=== PATIENT | female | born 1970 | race Caucasian/White ===

== ENCOUNTER → 2020-05-14 | Outpatient (CLI) | payer BC ==
[~2020-05-14] VITALS: Ht 165.1 cm; Wt 77.1 kg
[~2020-05-14] MED LIST: ALEVE220 MG PO; METFORMIN HCL1000 M2 PO; METFORMIN HCL500 M3 PO; ROSUVASTATIN CA20 MG PO
--- NOTE | ~2020-05-14 | HPC ---
[facility] [place] [place] [address] PAIN MANAGEMENT CONSULTATION Name: MARGIE MORA Room #: REG STEVEN CurielRobin#: [id number] Admission: 05/14/20 Attend Phys: Gavino Davalos DO Discharge: Date of : 74 Report #: [id number] THIS REPORT FOR: cc: Henry Neely II, MD, II,Gavino Burks MD, DO ~ CC: Gavino Neely MD DATE OF SERVICE: 05/14/2020 REFERRING PHYSICIAN: Henry Neely MD CHIEF COMPLAINT: Low back pain, right lower extremity pain with paresthesias. HISTORY OF PRESENT ILLNESS: As you know, the patient is a very pleasant 50-year-old female who reports acute onset of low back pain, right lower extremity pain with paresthesias began 04/08/2019. The patient states that symptoms began immediately after lifting her 85-90 pound child. The patient indicates that prior to this, she had no history of low back symptoms. She states after lifting her child, she began to experience pain in the low back. She trialled conservative treatment including rest, relaxation and [id number] medications. This did not improve her symptoms. She then began experiencing symptoms radiating down the leg. She sought evaluation through her primary care physician, Dr. Henry Neely, who trialled conservative treatment including physical therapy. Unfortunately, physical therapy has been unsuccessful alleviating symptoms. She does come to us today with an imaging study from 04/18/2019 which shows changes at the L4-L5 level consistent with her distribution of pain. She was referred to our clinic to discuss interventional treatment options. The patient reports today pain is steady. She describes the pain as shooting, aching, sharp and tender. Pain today is rated anywhere from 7-8/10, daily average at 7-8/10, worst pain has been is 9/10. The patient states that sitting for any length of time, bending for any length of time and standing for any length of time exacerbates symptoms. Pain is improved with lying on her stomach and repositioning. She has been referred to our service to discuss treatment options for lumbar radiculopathy secondary to the findings at the L4-L5 level. PAST MEDICAL HISTORY: 1. Diabetes mellitus type 2. 2. Asthma. 3. Dyslipidemia. PAST SURGICAL HISTORY: [address] [address] PAIN MANAGEMENT CONSULTATION Name: MARGIE MORA Room #: REG STEVEN Adams#: [id number] Admission: 05/14/20 Attend Phys: Gavino Davalos DO Discharge: Date of : 74 Report #: [id number] 1. Tonsillectomy, adenoidectomy, 04/2002. 2. section,10/2004. 3. section, 03/2006. SOCIAL HISTORY: The patient denies tobacco, alcohol, IV or illicit drug use. She is a youth director. She is working, not receiving workmen's compensation nor is trying to obtain disability benefits. She is not in litigation in regards to pain. She is unaccompanied at today's visit. REVIEW OF SYSTEMS: Positive for wearing corrective eyewear, earaches with drainage, asthma and wheezing, painful menses, irregular menses, diabetes mellitus type 2, noninsulin dependent, low back pain, right lower extremity pain with paresthesias. All other review of systems negative per 12-point review of systems other than those listed in history of present illness. Pain impact score 43 of 70 indicating moderate to severe interference of daily activities secondary to pain. ALLERGIES: No reported drug allergies. CURRENT MEDICATIONS: Naproxen 220 mg twice a day, lovastatin 20 mg once a day, metformin 1000 mg once a day. IMAGING: MRI lumbar spine obtained on 04/18/2019 shows L1-L2, L2-L3 unremarkable. L3-L4 shows bilateral facet hypertrophy, no significant central canal nor neural foraminal stenosis. L4-L5 right paracentral posterior disk herniation severely effacing the right lateral recess demonstrating mass effect upon the traversing right L5 nerve root. Disk fragment measures 13 x 6 mm in combination with severe bilateral facet hypertrophy and ligamentum flavum hypertrophy resulting in severe central canal stenosis with canal measuring only 5 mm. No significant neural foraminal narrowing. L5-S1 bilateral facet hypertrophy, small, broad-based posterior disk bulge, no significant central canal or neural foraminal stenosis. PHYSICAL EXAMINATION: VITAL SIGNS: Blood pressure 151/67, pulse 94, respiratory rate 16 and unlabored. The patient is 100% on room air. Height 5 feet 5 inches tall, weight 170 pounds, BMI calculated 28.3. GENERAL: Well-developed, well-nourished, well-hydrated 50-year-old female appearing stated age, pain is rated around 7-8/10. HEENT: Normocephalic, atraumatic. Pupils equal, round and reactive to light. Extraocular muscles are intact. NEUROLOGIC: Speech is fluent. The patient deemed an excellent historian. LUNGS: Clear, no wheeze, rhonchi or rales. CARDIOVASCULAR: Regular. No appreciable gallop, no rub. ABDOMEN: Soft, mildly obese, normoactive bowel sounds. [address] [address] PAIN MANAGEMENT CONSULTATION Name: MARGIE MORA Room #: REG STEVEN Adams#: [id number] Admission: 05/14/20 Attend Phys: Gavino Davalos DO Discharge: Date of : 74 Report #: [id number] EXTREMITIES: Show no clubbing, no cyanosis. No appreciable edema. MUSCULOSKELETAL: Lower extremity strength is symmetrical 5/5. Slight giveaway strength noted with hip flexion, knee extension on the right when compared to left. Seated straight leg raising positive on the right. Supine straight leg raising positive on the right at approximately 50-60 degree angle. Ankle clonus negative. Babinski is negative. The patient is able to toe walk and heel walk with assistance. Deep tendon reflexes appear symmetrical at patella and Achilles. Clonus in the ankle is negative. Babinski's is negative. Lumbar provocation testing is met with slight increase in pain with lateral flexion and rotation to the right. ASSESSMENT: 1. Symptomatic lumbar radiculopathy. 2. Severe central canal stenosis of the lumbar spine. 3. Displacement of lumbar intervertebral disk with radiculopathy. 4. Lumbosacral spondylosis with radiculopathy. 5. Chronic intractable pain. PLAN: 1. Based on today's physical exam and history the patient has provided, the description the patient uses in regards to pain as well as location of symptoms, it would appear the patient is suffering from lumbar radiculopathy. The patient comes to us with imaging study from 04/2019, which shows significant changes at the L4-L5 level consistent with the patient's ongoing pain began after lifting her child. We have discussed with the patient the findings of her MRI and correlated those findings to her symptoms that she is currently experiencing. After this discussion, we then conversed about the treatment options we have available for lumbar radiculopathy. The following was discussed with the patient today. We discussed physical therapy, stretching exercise, core strengthening and any weight loss that she could attain. We discussed medication management utilizing neuropathic pain medications such as amitriptyline, nortriptyline, Cymbalta, Lyrica or gabapentin to treat symptoms. We discussed epidural injection under fluoroscopic guidance for which the patient was referred to our clinic. We also discussed spinal cord stimulator therapy and ultimately surgical decompression of the L4-L5 level. After reviewing the risks and benefits of all the proposed treatment options, the patient chose to begin with epidural injection under fluoroscopic guidance. 2. The patient wishes to make an appointment tomorrow to undergo the epidural injection. She was unable to clear her schedule this evening to go home after the procedure and take it easy. She was able to clear her schedule tomorrow, 05/15/2020. She wishes to undergo the injection at that visit. We have made an appointment for the patient at 1445 hours to undergo first in a series of lumbar epidural injections. She is then to go home after this and remain relatively sedentary for the next 24 hours, limiting her movement, which [address] [address] PAIN MANAGEMENT CONSULTATION Name: MORGANMARGIE Room #: REG STEVEN Adams#: [id number] Admission: 05/14/20 Attend Phys: Gavino Davalos DO Discharge: Date of : 74 Report #: [id number] will increase the efficacy of the injection. 3. No medication changes made at today's visit. We will continue the patient on current medication management. 4. We will see the patient back in followup visit tomorrow to undergo lumbar epidural injection under fluoroscopic guidance. 5. We wish to thank Dr. Henry Neely for the referral of this patient to our clinic. We will keep you apprised of her response to treatment as we address lumbar radiculopathy secondary to the findings at the L4-L5 level. Again, we wish to thank you for the opportunity to see this patient in consultation. By: [id number] [id number] Gavino Davalos DO /nt
[2020-05-14 12:40] VITALS: BP 151/67
== END ==
LOC: PAIN 06:58
PROVIDERS: ATTEND Anesthesiology Pain Medicine
DX: M51.16 Intervertebral disc disorders with radiculopathy, lumbar region (principal); M48.061 Spinal stenosis, lumbar region without neurogenic claudication; M47.27 Other spondylosis with radiculopathy, lumbosacral region; M79.604 Pain in right leg; R20.2 Paresthesia of skin; G89.29 Other chronic pain; E11.9 Type 2 diabetes mellitus without complications

== ENCOUNTER → 2020-05-15 | Outpatient (CLI) | payer BC ==
[~2020-05-15] VITALS: Ht 165.1 cm; Wt 77.1 kg
[2020-05-15 15:02] VITALS: BP 144/99
--- NOTE | 2020-05-21 08:31 | HPC ---
[facility] [place] [address] PAIN MANAGEMENT CONSULTATION Name: MARGIE MORA Room #: REG STEVEN Bryan#: [id number] Admission: 05/15/20 Attend Phys: Gavino Davalos DO Discharge: Date of : 74 Report #: [id number] THIS REPORT FOR: cc: Henry Neely II, MD, II, Lawrence MD Johnson, James E. DO ~ DATE OF SERVICE: 05/15/2020 REFERRING PHYSICIAN: Henry Neely MD CHIEF COMPLAINT: Low back pain, right lower extremity pain and paresthesias. HISTORY OF PRESENT ILLNESS: As you know, the patient is a very pleasant 50-year-old female who had an acute onset of low back pain, right lower extremity pain, which began after lifting her 80-90 pound child on 04/08/2019. The patient underwent imaging which showed changes at the L4-L5 level with a large herniated disk at the L4-L5 level. She sought evaluation through her primary care physician and Neurosurgery and chose to remain conservative with treatment. She continues to experience pain and was ultimately referred to our clinic to undergo epidural injection. We saw the patient yesterday in consultation and made her an appointment today to undergo lumbar epidural injection as she needed to clear her schedule to be able to go home after the procedure and remain relatively sedentary. She returns today in followup visit stating a pain level of 7-8/10. She has had no changes in medical history over the past 18 hours. She returns today in followup visit to undergo first in a series of lumbar epidural injections. ALLERGIES: No known drug allergies. CURRENT MEDICATIONS: Naproxen, rosuvastatin, metformin. SOCIAL HISTORY: The patient denies tobacco, alcohol, IV or illicit drug use. 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 She is unaccompanied today. IMAGING: No new imaging available. PHYSICAL EXAMINATION: VITAL SIGNS: Blood pressure 144/99, pulse 105, respiratory rate 14 and unlabored. The patient is 97% on room air. Height 5 feet 5 inches tall, weight 170 pounds, BMI calculated 28.3. GENERAL: Well-developed, well-nourished, well-hydrated 50-year-old female appearing stated age, placing current pain score 7/10. HEENT: Normocephalic, atraumatic. Pupils equal, round and reactive. Speech is fluent. EXTREMITIES: Show no clubbing, no cyanosis, no edema. [address] [address] PAIN MANAGEMENT CONSULTATION Name: MARGIE MORA Room #: REG CLGuera TovarRobinJusticeRobin#: [id number] Admission: 05/15/20 Attend Phys: Gavino Davalos DO Discharge: Date of : 74 Report #: [id number] MUSCULOSKELETAL: Lower extremity strength is symmetrical, though there is once again slight loss of strength with hip flexion, knee extension due to pain generation. This is noted only on the right side. Seated straight leg raising positive on the right. Supine straight leg raising positive on the right. ASSESSMENT: 1. Symptomatic lumbar radiculopathy. 2. Severe central canal stenosis of lumbar spine. 3. Displacement of lumbar intervertebral disk with radiculopathy. 4. Lumbosacral spondylosis with radiculopathy. 5. Chronic intractable pain. PLAN: 1. The patient returns today in followup visit to undergo the first in a series of lumbar epidural injections under fluoroscopic guidance to address right low back pain, right lower extremity pain secondary to the central canal stenosis at the L4-L5 level. The patient has been advised of the risks and the benefits of this procedure. These risks include but are not necessarily limited to bleeding, bruising, infection, worsening pain, no relief of pain, also risk of temporary or permanent muscle weakness, temporary or permanent nerve damage, possible paralysis and . The patient states understood and wished to proceed. 2. No medication changes made at today's visit. The patient will continue current medical therapy as prior prescribed. 3. We will see the patient back in followup visit in approximately one month. At that time, review the efficacy of today's epidural injection and determine if next in the series of epidural injections would be recommended. PROCEDURE NOTE: DESCRIPTION OF PROCEDURE: L5-S1 right paramedian epidural steroid injection under fluoroscopic guidance. This is the first procedure of the first series that the patient is undergoing. After obtaining written consent, the patient was taken back to the fluoroscopy suite, placed in a prone position with pillow under the abdomen to decrease lumbar lordosis. The skin overlying the lumbosacral area was then prepped and draped in aseptic fashion. The L5-S1 vertebral interspace was then identified by AP fluoroscopy. The skin and subcutaneous tissue overlying the target site of injection was anesthetized with 3 mL 1% lidocaine. A 20-guage 3.5 inch Tuohy needle was then advanced under fluoroscopic guidance towards the epidural space using a right paramedian approach. The epidural space was identified using loss of resistance to air technique. After negative aspiration for heme or cerebrospinal fluid, a total of 1 mL of Omnipaque was injected. A lumbar epidurogram was confirmed using both AP and lateral [address] [address] PAIN MANAGEMENT CONSULTATION Name: MARGIE MORA Room #: RAMEZ Adams#: [id number] Admission: 05/15/20 Attend Phys: Gavino Davalos DO Discharge: Date of : 74 Report #: [id number] fluoroscopy. After negative aspiration for heme or cerebrospinal fluid, 5 mL of a solution containing 2 mL of 40 mg per mL, 80 mg total triamcinolone along with 3 mL of lidocaine 1% was injected in increments. Contrast spread was noted posterior epidural space. The needle was then retracted approximately half way and needle tract flushed with 1 mL of 1% lidocaine. Needle was then removed. There were no apparent sensory or motor deficits in the lower extremity following the procedure. A sterile bandage was placed over the injection site. The heart rate, pulse, oximetry and blood pressure were continuously monitored after the procedure. There were no apparent complications. The patient tolerated the procedure well and was carefully escorted to the recovery room in stable condition. There were no apparent complications. After meeting discharge criteria, the patient was then discharged home. <ELECTRONICALLY SIGNED> By: Gavino Davalos DO 05/21/20 [id number] Gavino Davalos DO /nt
== END | disposition home or self-care (01) ==
LOC: PAIN 07:01
PROVIDERS: ATTEND Anesthesiology Pain Medicine
DX: M51.16 Intervertebral disc disorders with radiculopathy, lumbar region (principal); M48.061 Spinal stenosis, lumbar region without neurogenic claudication; M47.27 Other spondylosis with radiculopathy, lumbosacral region; M48.062 Spinal stenosis, lumbar region with neurogenic claudication; Z98.890 Other specified postprocedural states; Z79.899 Other long term (current) drug therapy